=== PATIENT | female | born 1980 | race Caucasian/White ===

== ENCOUNTER 2017-07-04 06:18 | Day surgery (SDC) | payer BC ==
[~2017-07-04 06:18] MED LIST: Buffered Lidocaine 0.9% SYRIN* 5 ML/SYR SYRINGE INTRADERM ONE; Famotidine TAB* 20 MG PO ONE
[2017-07-04] MEDS ORDERED: Ketorolac INJ* 30 MG/ML 1 ML VIAL ONE ×2 (06:30→08:22)
[2017-07-04] MEDS ORDERED: ceFAZolin 2 GM PREMIX (*) 2 GM/50 ML BAG IVPB ONE (06:30)
[2017-07-04] MEDS ORDERED: Famotidine TAB* 20 MG ONE (06:30)
[2017-07-04] MEDS ORDERED: Midazolam* 1 MG/ML 5 ML VIAL (5 MG) ONE (07:07)
[2017-07-04] MEDS ORDERED: fentaNYL* 50 MCG/ML 2 ML VIAL (100 MCG VIAL) ONE (07:07)
[2017-07-04] MEDS ORDERED: Bupivacaine 0.25% SDV* 30 ML ONE (07:19)
[2017-07-04] MEDS ORDERED: Lidocaine 1% MPF wEPI 200,000* 30 ML SDV ONE (07:30)
[2017-07-04] MEDS ORDERED: Dexamethasone IV* 4 MG/ML 1 ML (4 MG) ONE (08:22)
[2017-07-04] MEDS ORDERED: DiMENhydriNATE IV* 50 MG/ML VIAL ONE (08:22)
[2017-07-04] MEDS ORDERED: Propofol* 10 MG/ML 20 ML BTL IV PUSH ONE (08:22)
[2017-07-04] MEDS ORDERED: DiMENhydriNATE IV* 50 MG/ML VIAL IV PUSH PRN (08:54)
[2017-07-04] MEDS ORDERED: fentaNYL* 50 MCG/ML 2 ML VIAL (100 MCG VIAL) IV PRN (08:54)
[2017-07-04] MEDS ORDERED: Naloxone* 0.4 MG/ML 1 ML VIAL IV PRN (08:54)
[2017-07-04] MEDS ORDERED: Acetaminophen TAB* 325 MG PO PRN (08:54)
[2017-07-04 10:01] VITALS: BP 124/75
--- NOTE | 2017-07-05 02:22 | OP ---
CC: Monica Solano MD * DATE OF OPERATION: 07/04/17 - [facility] DATE OF : 80 SURGEON: Geovani Soto MD DISPATCHER RELAY: None. ANESTHESIOLOGIST: Dr. Victor. ANESTHESIA: General anesthetic, local infiltration. PRE-OP DIAGNOSIS: Right axillary hidradenitis. POST-OP DIAGNOSIS: Right axillary hidradenitis. OPERATIVE PROCEDURE: Excision of right axillary hidradenitis. COMPLICATIONS: None. DRAINS: None. PATHOLOGY SPECIMEN: As above. Sponge and instrument counts correct. ESTIMATED BLOOD LOSS: Less than 20 mL. DESCRIPTION OF PROCEDURE: The patient was supine on the operating table. After adequate general anesthetic, compression stockings, Garima hugger warmer, and intravenous antibiotics, the right axilla was prepped with antiseptic and draped in a sterile fashion. Local infiltrative anesthesia was administered and an elliptical incision was accomplished. This was approximately 3 x 10 cm in size and carried down through the subcutaneum. This was then sent as a specimen in formalin, labeled right axillary hidradenitis. Closure was accomplished in layers using 3-0 Vicryl and 3-0 Prolene followed by a sterile dressing. She tolerated the procedure well. Local anesthetic was administered as well. She was brought to Recovery in good condition. [id number]/[facility] #: [id number] [facility]
== END 2017-07-04 10:13 | disposition home or self-care (01) ==
LOC: OR 06:18
PROVIDERS: ATTEND Surgery
DX: L73.2 Hidradenitis suppurativa (principal); Z72.0 Tobacco use; J30.2 Other seasonal allergic rhinitis
CPT/HCPCS: 81025; 88304; A9270-GY; J0690; J1100; J1240; J1885; J2001; J2250; J2704; J3010